=== PATIENT | male | born 1960 | race Caucasian/White ===

== ENCOUNTER 2024-05-08 21:26 | Emergency (ER) | payer OTHER ==
[~2024-05-08] VITALS: Ht 172.7 cm; Wt 70.3 kg
[~2024-05-08 21:26] MED LIST: AMOCLA875 PO; HYDACE5 PO; NAPR500 PO
[2024-05-09 01:50] VITALS: BP 156/78
== END 2024-05-09 02:20 | disposition home or self-care (01) ==
LOC: ER 21:26
DX: S63.601A Unspecified sprain of right thumb, initial encounter (principal); Z88.5 Allergy status to narcotic agent; Z79.2 Long term (current) use of antibiotics; X50.9XXA Other and unspecified overexertion or strenuous movements or postures, initial encounter
CPT/HCPCS: 73130; 99283-25